=== PATIENT | female | born 1975 | race Caucasian/White ===

== ENCOUNTER 2016-10-22 19:09 | Emergency (ER) | payer MEDICAID ==
[2016-10-22 19:19] VITALS: BP 117/78; PULSE 86; RESP 18; TEMP 97.7; O2SAT 95
[2016-10-22] MEDS ORDERED: Sodium Chloride 0.9% 1,000 ML IV STA (20:38)
--- NOTE | 2016-10-22 20:41 | ED PDOC ---
HPI: General Adult Time Seen by Provider: 10/22/16 20:14 Chief Complaint (Nursing): GI Problem Chief Complaint (Provider): vomiting, body pain History Per: Patient History/Exam Limitations: no limitations Onset/Duration Of Symptoms: Days (2) Current Symptoms Are (Timing): Still Present Additional History Per: Patient Additional Complaint(s): 40 y/o female history of Lupus, Fibromyaglia, MS, chronic pain presents with complaints of vomiting, and generalized body pain x 2 days. Patient states she was admitted to [facility] last week for Lupus flare-up and signed out against medical advice due to family issues. Patient states she has not taken any of her medications or any analgesics in 2 days. Denies fever, headache, dizziness, vision changes, neck pain, chest pain, shortness of breath, palpitations, changes in bowel movements, urinary symptoms, recent travel, sick contacts. Past Medical History Reviewed: Historical Data, Nursing Documentation, Vital Signs Vital Signs: Last Vital Signs Temp 97.7 F 10/22/16 19:14 Pulse 86 10/22/16 19:14 Resp 18 10/22/16 19:14 BP 117/78 10/22/16 19:14 Pulse Ox 95 10/23/16 00:48 - Medical History PMH: Atrial Fibrillation, Deep Vein Thrombosis, Pulmonary Embolism, Seizures - Surgical History Other surgeries: IVC filter, leg stents - Family History Family History: States: Unknown Family Hx - Home Medications Home Medications: Ambulatory Orders Medication Instructions Recorded Naproxen [Naprosyn] 500 mg PO Q12 PRN #20 tablet 10/22/16 Ondansetron ODT [Zofran ODT] 4 mg PO Q8 PRN #10 odt 10/23/16 - Allergies Allergies/Adverse Reactions: Allergies Allergy/AdvReac Type Severity Reaction Status Date / Time iodine Allergy ANAPHYLAXIS Verified 10/22/16 19:14 Penicillins Allergy RASH Verified 10/22/16 19:14 shellfish derived Allergy SWELLING Verified 10/22/16 19:14 sulfamethoxazole Allergy RASH Verified 10/22/16 19:14 [From Bactrim] trimethoprim [From Bactrim] Allergy RASH Verified 10/22/16 19:14 Review of Systems ROS Statement: Except As Marked, All Systems Reviewed And Found Negative Gastrointestinal: Positive for: Nausea, Vomiting, Abdominal Pain Musculoskeletal: Positive for: Arm Pain, Back Pain Physical Exam - Reviewed Nursing Documentation Reviewed: Yes Vital Signs Reviewed: Yes - Physical Exam Appears: Positive for: Well, Non-toxic, No Acute Distress Head Exam: Positive for: ATRAUMATIC, NORMAL INSPECTION, NORMOCEPHALIC Skin: Positive for: Normal Color Eye Exam: Positive for: Normal appearance ENT: Positive for: Normal ENT Inspection Cardiovascular/Chest: Positive for: Regular Rate, Rhythm Respiratory: Positive for: Normal Breath Sounds Gastrointestinal/Abdominal: Positive for: Normal Exam Back: Positive for: Normal Inspection Extremity: Positive for: Normal ROM Neurologic/Psych: Positive for: Alert, Oriented - Laboratory Results Result Diagrams: 10/22/16 23:06 10/22/16 23:06 - ECG O2 Sat by Pulse Oximetry: 95 - Progress ED Course And Treament: labs, urine, Morphine IM, Zofran [facility]/325mg tablets prescribed 10/09/16 Case discussed with ED attending Dr. Rodriguez, agrees with plan to discharge and follow up outpatient for chronic pain. Rx naproxen, zofran provided. Return to ED for worsening/concerning symptoms. Disposition - Clinical Impression Clinical Impression: Generalized pain, Nausea & vomiting, Chronic pain - Patient ED Disposition Is Patient to be Admitted: No Counseled Patient/Family Regarding: Studies Performed, Diagnosis, Need For Followup, Rx Given - Disposition Disposition: Routine/Home Disposition Time: 00:00 Condition: IMPROVED Prescriptions: Naproxen [Naprosyn] 500 mg PO Q12 PRN #20 tablet PRN Reason: Pain, Moderate (4-7) Ondansetron ODT [Zofran ODT] 4 mg PO Q8 PRN #10 odt PRN Reason: Nausea/Vomiting Instructions: Chronic Pain (ED), Acute Nausea and Vomiting (ED), Musculoskeletal Pain (ED)
[2016-10-22 23:10] LABS: BASO # 0.1 K/uL (0.0-0.2); BASO % 1.2 % (0.0-2.0); EOS # 0.3 K/uL (0.0-0.7); EOS % 4.3 % (0.0-4.0); HEMATOCRIT 33.4 % (34.0-47.0); LYMPH # 1.9 K/uL (1.0-4.3); LYMPH % 26.4 % (20.0-40.0); MEAN CELL VOLUME 79.4 fl (81.0-99.0); MEAN CORPUSCULAR HEMOGLOBIN 24.4 pg (27.0-31.0); MEAN CORPUSCULAR HGB CONC 30.7 g/dL (33.0-37.0); MEAN PLATELET VOLUME 6.8 fl (7.2-11.7); MONO # 0.4 K/uL (0.0-0.8); MONO % 6.4 % (0.0-10.0); NEUT # 4.3 K/uL (1.8-7.0); NEUT % 61.7 % (50.0-75.0); RED CELL DISTRIBUTION WIDTH 17.7 % (11.5-14.5)
[2016-10-22] MEDS ORDERED: Morphine 4 MG/ML VIAL IM ONE (23:10)
[2016-10-22 23:20] LABS: ALB/GLOB RATIO 1.3 (1.0-2.1); ALKALINE PHOSPHATASE 54 U/L (38-126); ALT/SGPT 25 U/L (9-52); AST/SGOT 17 U/L (14-36); BILIRUBIN,TOTAL 0.5 mg/dl (0.2-1.3); BLOOD UREA NITROGEN 10 mg/dl (7-17); CALCIUM 8.8 mg/dL (8.4-10.2); CARBON DIOXIDE 27 mmol/L (22-30); CHLORIDE 105 mmol/L (98-107); GFR AFRICAN-AMERICAN > 60; GLUCOSE,RANDOM 94 mg/dL (65-105); LIPASE 37 U/L (23-300); POTASSIUM 3.5 MMOL/L (3.6-5.0); SODIUM 139 mmol/l (132-148); TOTAL PROTEIN 7.2 G/DL (6.3-8.2)
== END 2016-10-23 00:50 | disposition home or self-care (01) ==
LOC: H.ER 19:09
DX: G89.29 Other chronic pain (principal); R11.2 Nausea with vomiting, unspecified; M32.9 Systemic lupus erythematosus, unspecified; Z86.711 Personal history of pulmonary embolism; Z86.718 Personal history of other venous thrombosis and embolism; Z88.0 Allergy status to penicillin; I48.91 Unspecified atrial fibrillation